=== PATIENT | male | born 1995 | race Two or more races ===

== ENCOUNTER 2020-02-09 06:51 | Emergency (ER) | payer OTHER ==
[~2020-02-09] VITALS: Ht 180.3 cm; Wt 68.0 kg
[2020-02-09 06:58] VITALS: BP 110/74
== END 2020-02-09 07:15 | disposition home or self-care (01) ==
LOC: ER 06:51
DX: S50.812A Abrasion of left forearm, initial encounter (principal); V49.49XA Driver injured in collision with other motor vehicles in traffic accident, initial encounter; Y93.89 Activity, other specified; Y92.488 Other paved roadways as the place of occurrence of the external cause; Y99.8 Other external cause status